=== PATIENT | male | born 1985 | race Hispanic/Latino ===

== ENCOUNTER 2018-09-02 08:35 | Observation (INO) | payer OTHER ==
[2018-09-02 08:45] VITALS: BMI 25.0
[2018-09-02] MEDS ORDERED: Sodium Chloride 0.9% 1,000 ML IV STA ×2 (09:40→14:08)
--- NOTE | 2018-09-02 09:58 | ED PDOC ---
HPI: Abdomen Time Seen by Provider: 09/02/18 09:03 Chief Complaint (Nursing): Male Genitourinary History Per: Patient Additional Complaint(s): Pt. states yesterday at 1400 pt. developed a gradual onset RLQ abd pain which has progressively worsened. States that pain is associated with nausea but does admit to having nausea daily and is not increased. Denies fever, diarrhea, previous abdominal surgeries, back pain, flank pain, hematuria. PMD: Joaquin (has not been him >2 years) Past Medical History Reviewed: Historical Data, Nursing Documentation, Vital Signs Vital Signs: Last Vital Signs Temp 98.1 F 09/02/18 08:42 Pulse 68 09/02/18 08:42 Resp 16 09/02/18 08:42 BP 114/65 09/02/18 08:42 Pulse Ox 96 09/02/18 08:42 - Surgical History Surgical History: No Surg Hx - Family History Family History: States: No Known Family Hx - Home Medications Home Medications: Ambulatory Orders Medication Instructions Recorded RX: No Known Home Med 09/02/18 - Allergies Allergies/Adverse Reactions: Allergies Allergy/AdvReac Type Severity Reaction Status Date / Time No Known Allergies Allergy Verified 09/02/18 08:51 Review of Systems ROS Statement: Except As Marked, All Systems Reviewed And Found Negative Gastrointestinal: Positive for: Nausea, Abdominal Pain Physical Exam - Physical Exam Appears: Positive for: Well, Non-toxic, No Acute Distress Skin: Positive for: Normal Color, Warm. Negative for: Rash Eye Exam: Positive for: Normal appearance. Negative for: Scleral icterus (b/l) Cardiovascular/Chest: Positive for: Regular Rate, Rhythm Respiratory: Positive for: CNT, Normal Breath Sounds Gastrointestinal/Abdominal: Positive for: Normal Exam, Soft, Tenderness (mild tenderness over McBurney's point) Back: Positive for: Normal Inspection. Negative for: L CVA Tenderness, R CVA Tenderness Neurologic/Psych: Positive for: Alert, Oriented (x3). Negative for: Aphasia, Facial Droop - Laboratory Results Result Diagrams: 09/02/18 10:00 09/02/18 10:00 - ECG O2 Sat by Pulse Oximetry: 96 - Progress ED Course And Treament: Labs, IV NS bolus x 1, zofran 4mg IV, CT abd/pelvis w/ IV contrast ordered. Pt. kept NPO. Offered pain meds but refused. 1410 CT abd/pelvis w/ IV contrast: Mildly enlarged appendix surrounding with mild i nflammatory changes. The possibility of an early acute appendicitis should be considered. Slightly prominent right mid and lower abdomen mesenteric lymph nodes. Otherwise no evidence of acute pathology in the abdomen and pelvis. Pt. informed of findings and plan. Agrees with plan. Offered pain meds but still refused. Call placed to surgical garment inspector. 1416 Case d/w BERNARDO Hendrix, who states pt. should be admitted under general surgery or med button maker and not to Marine. Case d/w Dr. Oleary, surgical garment inspector, who will evaluate pt. in ED. 1500 Pt. evaluated by Anirudh in ED who then spoke with Dr. Arias and requests for pt. to be admitted. States the will evaluate pt. before making decision to take pt. to OR but will need observation regardless. Requests that pt. be admitted to the hospitalist. Agrees with Zosyn IV. Pt. informed of pain and agrees. Has not had to eat or drink since 1800 yesterday. 1517 Case d/w Dr. Drew and arrangements made for admission. Disposition - Clinical Impression Clinical Impression: Appendicitis - Patient ED Disposition Is Patient to be Admitted: Yes - Disposition Disposition Time: 15:00 Condition: STABLE
[2018-09-02 10:24] LABS: SQUAMOUS EPITHIAL < 1 /hpf (0-5); URINE BILIRUBIN NEGATIVE (NEGATIVE); URINE BLOOD NEGATIVE (NEGATIVE); URINE CLARITY CLEAR (Clear); URINE COLOR YELLOW (YELLOW); URINE GLUCOSE (UA) NEG (Normal); URINE LEUKOCYTE ESTERASE NEG Leu/uL (Negative); URINE PROTEIN NEGATIVE (NEGATIVE); URINE UROBILINOGEN 0.2-1.0 mg/dL (0.2-1.0)
[2018-09-02 10:47] LABS: BASO % 0.3 % (0.0-2.0); EOS # 0.1 K/uL (0.0-0.7); EOS % 1.6 % (0.0-4.0); HEMOGLOBIN 14.7 g/dL (12.0-18.0); LYMPH # 1.9 K/uL (1.0-4.3); LYMPH % 24.9 % (20.0-40.0); MEAN CELL VOLUME 93.8 fl (80.0-94.0); MEAN CORPUSCULAR HEMOGLOBIN 31.7 pg (27.0-31.0); MEAN CORPUSCULAR HGB CONC 33.8 g/dL (33.0-37.0); MEAN PLATELET VOLUME 9.6 fl (7.2-11.7); MONO # 0.6 K/uL (0.0-0.8); NEUT % 65.2 % (50.0-75.0); RBC 4.63 Mil/uL (4.40-5.90); RED CELL DISTRIBUTION WIDTH 13.3 % (11.5-14.5); WHITE BLOOD COUNT 7.7 K/uL (4.8-10.8)
[2018-09-02 10:52] LABS: ALB/GLOB RATIO 1.2 (1.0-2.1); ALBUMIN 4.4 g/dL (3.5-5.0); ALT/SGPT 32 U/L (21-72); AST/SGOT 23 U/L (17-59); BLOOD UREA NITROGEN 17 mg/dl (9-20); GFR NON-AFRICAN AMERICAN > 60; LIPASE 68 U/L (23-300)
[2018-09-02] MEDS ORDERED: Iohexol 300 100 ML IJ ONE (13:03)
[2018-09-02] MEDS ORDERED: Sodium Chloride 0.9% 100 ML ONE (13:04)
--- NOTE | 2018-09-02 13:55 | CT ---
Date of service: 09/02/2018 PROCEDURE: CT Abdomen and Pelvis with contrast HISTORY: RLQ abd pain COMPARISON: None. TECHNIQUE: Contrast dose: 98 cc of Omnipaque was injected intravenously. Axial and reformatted coronal and sagittal CT images of the abdomen and pelvis were obtained after IV contrast administration. Radiation dose: Total exam DLP = 371.05 mGy-cm. This CT exam was performed using one or more of the following dose reduction techniques: Automated exposure control, adjustment of the mA and/or kV according to patient size, and/or use of iterative reconstruction technique. FINDINGS: LOWER THORAX: Unremarkable. LIVER: Unremarkable. No gross lesion or ductal dilatation. GALLBLADDER AND BILE DUCTS: Unremarkable. PANCREAS: Unremarkable. No gross lesion or ductal dilatation. SPLEEN: Unremarkable. ADRENALS: Unremarkable. No mass. KIDNEYS AND URETERS: Unremarkable. No hydronephrosis. No solid mass. VASCULATURE: Unremarkable. No aortic aneurysm. BOWEL: Unremarkable. No obstruction. No gross mural thickening. APPENDIX: The appendix is enlarged measures up to 10 millimeter in the transverse diameter. Mild inflammatory changes noted at the J sent to the appendix. The possibility of an early appendicitis is not totally excluded. PERITONEUM: Unremarkable. No free fluid. No free air. LYMPH NODES: Slightly prominent mesenteric lymph nodes at the right lower abdomen. No enlarged lymph nodes. BLADDER: Unremarkable. REPRODUCTIVE: The prostate and seminal vesicles are enlarged. BONES: No acute fracture. OTHER FINDINGS: None. IMPRESSION: Mildly enlarged appendix surrounding with mild inflammatory changes. The possibility of an early acute appendicitis should be considered. Slightly prominent right mid and lower abdomen mesenteric lymph nodes. Otherwise no evidence of acute pathology in the abdomen and pelvis.
[2018-09-02] MEDS ORDERED: Piperacillin/Tazobact 3.375 GM in Sodium Chloride 0.9% 100 ML IVPB STA (14:29)
[2018-09-02] MEDS ORDERED: Piperacillin/Tazobact 3.375 gm Inj IVPB ONE (15:03)
--- NOTE | 2018-09-02 15:43 | CP.PCM.CON ---
<Shannon Oleary - Last Filed: 09/02/18 15:36> History of Present Illness - History of Present Illness History of Present Illness: Surgery Consult: Dr. Arias Pt is a 33M with no significant PMHx who presents to [facility] with abdominal pain x 1 day. Pt states he started having pain in the suprapubic/RLQ region yesterday afternoon and thought the pain would go away, however this morning when the pain persisted he came to the ER. Pt states he has never had a similar episode in the past and pain is worse when he moves around. He denies any associated nausea/vomiting, fevers/chills. In the ER, pt had a CT abdomen/pelvis which shows dilated appendix with some inflammatory changes, can't r/o early appendicitis. Prominent mesenteric lymph nodes in RLQ. Surgery called to evaluate. Currently, pt is resting comfortably in ER bed. States his pain is not bad when he is lying still. Admits to being v rachel hungry. Denies nausea/vomiting, fevers/chills, chest pain or SOB. Pt admits to traveling in the last few hours to [place] and states he was treated for "swollen lymph nodes" in his groin twice while in [facility]. PMHx: denies PSHx: knee surgery SocialHx: 5-6 cigs/day x 6 years, social EtOH, denies drugs NKDA Review of Systems - Review of Systems All systems: reviewed and no additional remarkable complaints except (as per HPI) Past Patient History - Infectious Disease Hx of Infectious Diseases: None - Past Social History Smoking Status: Light Smoker < 10 Cigarettes Daily Alcohol: Social Drugs: Denies - PSYCHIATRIC Hx Substance Use: No - SURGICAL HISTORY Hx Orthopedic Surgery: Yes (L Knee sx) - ANESTHESIA Hx Anesthesia: Yes Meds Allergies/Adverse Reactions: Allergies Allergy/AdvReac Type Severity Reaction Status Date / Time No Known Allergies Allergy Verified 09/02/18 08:51 Physical Exam - Constitutional Appears: Well, No Acute Distress - Head Exam Head Exam: ATRAUMATIC, NORMOCEPHALIC - Eye Exam Eye Exam: Normal appearance - ENT Exam ENT Exam: Mucous Membranes Moist - Respiratory Exam Respiratory Exam: NORMAL BREATHING PATTERN - Cardiovascular Exam Cardiovascular Exam: RRR - GI/Abdominal Exam GI & Abdominal Exam: Rebound (LLQ), Soft, Tenderness (to deep palpation in the RLQ/suprapubic region). absent: Distended, Guarding - Neurological Exam Neurological exam: Alert, Oriented x3 - Skin Skin Exam: Dry, Warm Results - Vital Signs Recent Vital Signs: Last Vital Signs Temp 98.1 F 09/02/18 08:42 Pulse 68 09/02/18 08:42 Resp 16 09/02/18 08:42 BP 114/65 09/02/18 08:42 Pulse Ox 96 09/02/18 15:20 - Labs Result Diagrams: 09/02/18 10:00 09/02/18 10:00 Labs: Laboratory Results - last 24 hr 09/02/18 09/02/18 09/02/18 10:00 10:00 10:00 WBC 7.7 RBC 4.63 Hgb 14.7 Hct 43.4 MCV 93.8 MCH 31.7 H MCHC 33.8 RDW 13.3 Plt Count 161 MPV 9.6 Neut % (Auto) 65.2 Lymph % (Auto) 24.9 [place] % (Auto) 8.0 Eos % (Auto) 1.6 Baso % (Auto) 0.3 Neut # (Auto) 5.0 Lymph # (Auto) 1.9 [place] # (Auto) 0.6 Eos # (Auto) 0.1 Baso # (Auto) 0.0 Sodium 142 Potassium 3.9 Chloride 105 Carbon Dioxide 28 Anion Gap 13 BUN 17 Creatinine 1.1 Est GFR ( Amer) > 60 Est GFR (Non-Af Amer) > 60 Random Glucose 90 Calcium 9.0 Total Bilirubin 1.3 AST 23 ALT 32 Alkaline Phosphatase 63 Total Protein 8.0 Albumin 4.4 Globulin 3.6 Albumin/Globulin Ratio 1.2 Lipase 68 Urine Color Yellow Urine Clarity Clear Urine pH 5.0 Ur Specific [place] 1.027 Urine Protein Negative Urine Glucose (UA) Neg Urine Ketones Negative Urine Blood Negative Urine Nitrate Negative Urine Bilirubin Negative Urine Urobilinogen 0.2-1.0 Ur Leukocyte Esterase Neg Urine RBC (Auto) 2 Urine Microscopic WBC 1 Ur Squamous Epith Cells < 1 - Imaging and Cardiology CT scan - abdomen Status: Image reviewed by me, Report reviewed by me Assessment & Plan - Assessment and Plan (Free Text) Assessment: 33M with abdominal pain, r/o appendicitis Plan: - keep NPO with IVF - will discuss operative vs non-operative plan with Dr. Juana Oleary <Scott Arias - Last Filed: 09/02/18 17:18> History of Present Illness - History of Present Illness History of Present Illness: Patient was seen and examined at the bedside. Agree with resident's note above. Meds - Medications Medications: Current Medications Acetaminophen (Tylenol 325mg Tab) 650 mg PO Q6 PRN PRN Reason: Fever >100.4 F Dextrose/Sodium Chloride (Dextrose 5%/0.45% Ns 1000 Ml) 1,000 mls @ 150 mls/hr IV .Q6H40M ANILA Last Admin: 09/02/18 16:54 Dose: 150 mls/hr Ondansetron HCl (Zofran Inj) 4 mg IVP Q6 PRN PRN Reason: Nausea/Vomiting Results - Vital Signs Recent Vital Signs: Last Vital Signs Temp 97.7 F 09/02/18 17:07 Pulse 60 09/02/18 17:07 Resp 16 09/02/18 17:07 BP 99/79 L 09/02/18 17:07 Pulse Ox 99 09/02/18 17:07 - Labs Result Diagrams: 09/02/18 10:00 09/02/18 10:00 Labs: Laboratory Results - last 24 hr 09/02/18 09/02/18 09/02/18 10:00 10:00 10:00 WBC 7.7 RBC 4.63 Hgb 14.7 Hct 43.4 MCV 93.8 MCH 31.7 H MCHC 33.8 RDW 13.3 Plt Count 161 MPV 9.6 Neut % (Auto) 65.2 Lymph % (Auto) 24.9 [place] % (Auto) 8.0 Eos % (Auto) 1.6 Baso % (Auto) 0.3 Neut # (Auto) 5.0 Lymph # (Auto) 1.9 [place] # (Auto) 0.6 Eos # (Auto) 0.1 Baso # (Auto) 0.0 PT INR APTT Sodium 142 Potassium 3.9 Chloride 105 Carbon Dioxide 28 Anion Gap 13 BUN 17 Creatinine 1.1 Est GFR ( Amer) > 60 Est GFR (Non-Af Amer) > 60 Random Glucose 90 Calcium 9.0 Total Bilirubin 1.3 AST 23 ALT 32 Alkaline Phosphatase 63 Total Protein 8.0 Albumin 4.4 Globulin 3.6 Albumin/Globulin Ratio 1.2 Lipase 68 Urine Color Yellow Urine Clarity Clear Urine pH 5.0 Ur Specific [place] 1.027 Urine Protein Negative Urine Glucose (UA) Neg Urine Ketones Negative Urine Blood Negative Urine Nitrate Negative Urine Bilirubin Negative Urine Urobilinogen 0.2-1.0 Ur Leukocyte Esterase Neg Urine RBC (Auto) 2 Urine Microscopic WBC 1 Ur Squamous Epith Cells < 1 09/02/18 16:05 WBC RBC Hgb Hct MCV MCH MCHC RDW Plt Count MPV Neut % (Auto) Lymph % (Auto) [place] % (Auto) Eos % (Auto) Baso % (Auto) Neut # (Auto) Lymph # (Auto) [place] # (Auto) Eos # (Auto) Baso # (Auto) PT 12.5 INR 1.1 APTT 35.1 Sodium Potassium Chloride Carbon Dioxide Anion Gap BUN Creatinine Est GFR ( Amer) Est GFR (Non-Af Amer) Random Glucose Calcium Total Bilirubin AST ALT Alkaline Phosphatase Total Protein Albumin Globulin Albumin/Globulin Ratio Lipase Urine Color Urine Clarity Urine pH Ur Specific [place] Urine Protein Urine Glucose (UA) Urine Ketones Urine Blood Urine Nitrate Urine Bilirubin Urine Urobilinogen Ur Leukocyte Esterase Urine RBC (Auto) Urine Microscopic WBC Ur Squamous Epith Cells Assessment & Plan - Assessment and Plan (Free Text) Plan: - Keep NPO - IV fluids - Hold any antibiotics - Hold pain medications - Will monitor closely - repeat labs in am
[2018-09-02 16:24] LABS: INR 1.1; PROTHROMBIN TIME 12.5 Seconds (9.8-13.1)
[2018-09-02 16:26] LABS: PARTIAL THROMBOPLASTIN TIME 35.1 Seconds (25.6-37.1)
--- NOTE | 2018-09-02 16:41 | CP.PCM.HP ---
<Jean Zaragoza - Last Filed: 09/02/18 17:22> History of Present Illness - History of Present Illness History of Present Illness: This is 33 y/o male with PMH of gastric ulcers admitted to [facility] for evaluation and treatment of possible appendicitis. Patient presented to the ER c/o 1 day history of b/l lower abdominal pain. Pain is 6/10, constant, sharp in nature, non-radiating, moving makes this pain worse, associated with only nausea. patient denies any vomiting, dizziness, fever, chills, diarrhea, constipation, SOB, chest pain, urinary symptoms or weakness. PMD: Dr. Spencer PMH: Gastric ulcers PSH: Left knee arthroscopy Allg: NKDA Medications: Denies FH: Denies any FH of cancers SH: half pack cig/day, social alcohol and denies any illicit drug use ROS: As above ER Course: VS: 98.1, 68, 16RR, 114/65, Spo2 96 CBC: Wnl, no elevated WBCs CMP: WNL Coag: reviewed UA: WNL CT abdo: Mildly enlarged appendix surrounding with mild inflammatory changes. The possibility of an early acute appendicitis should be considered. Slightly prominent right mid and lower abdomen mesenteric lymph nodes. S/p IVF, 2L S/p Zofran 4mg S/p Zosyn Present on Admission - Present on Admission Any Indicators Present on Admission: No History of DVT/PE: No History of Uncontrolled Diabetes: No Urinary Catheter: No Decubitus Ulcer Present: No Past Patient History - Infectious Disease Hx of Infectious Diseases: None - Past Social History Smoking Status: Light Smoker < 10 Cigarettes Daily Alcohol: Social Drugs: Denies - PSYCHIATRIC Hx Substance Use: No - SURGICAL HISTORY Hx Orthopedic Surgery: Yes (L Knee sx) - ANESTHESIA Hx Anesthesia: Yes Meds Allergies/Adverse Reactions: Allergies Allergy/AdvReac Type Severity Reaction Status Date / Time No Known Allergies Allergy Verified 09/02/18 08:51 Physical Exam - Constitutional Appears: No Acute Distress - Head Exam Head Exam: NORMAL INSPECTION - Eye Exam Eye Exam: EOMI, Normal appearance, PERRL Pupil Exam: NORMAL ACCOMODATION - ENT Exam ENT Exam: Mucous Membranes Moist - Neck Exam Neck exam: Positive for: Normal Inspection - Respiratory Exam Respiratory Exam: Clear to Auscultation Bilateral, NORMAL BREATHING PATTERN. absent: Accessory Muscle Use, Chest Wall Tenderness, Prolonged Expiratory Phase - Cardiovascular Exam Cardiovascular Exam: REGULAR RHYTHM, +S1, +S2 - GI/Abdominal Exam GI & Abdominal Exam: Normal Bowel Sounds, Soft. absent: Distended, Guarding, Organomegaly, Tenderness - Extremities Exam Extremities exam: Positive for: normal capillary refill, normal inspection - Back Exam Back exam: NORMAL INSPECTION. absent: CVA tenderness (L), CVA tenderness (R) - Neurological Exam Neurological exam: Alert, CN II-XII Intact, Normal Gait, Oriented x3 - Psychiatric Exam Psychiatric exam: Normal Affect, Normal Mood - Skin Skin Exam: Normal Color Results - Vital Signs Recent Vital Signs: Last Vital Signs Temp 98.8 F 09/02/18 16:09 Pulse 62 09/02/18 16:09 Resp 18 09/02/18 16:09 BP 119/62 09/02/18 16:09 Pulse Ox 100 09/02/18 16:09 - Labs Result Diagrams: 09/02/18 10:00 09/02/18 10:00 Labs: Laboratory Results - last 24 hr 09/02/18 09/02/18 09/02/18 10:00 10:00 10:00 WBC 7.7 RBC 4.63 Hgb 14.7 Hct 43.4 MCV 93.8 MCH 31.7 H MCHC 33.8 RDW 13.3 Plt Count 161 MPV 9.6 Neut % (Auto) 65.2 Lymph % (Auto) 24.9 [place] % (Auto) 8.0 Eos % (Auto) 1.6 Baso % (Auto) 0.3 Neut # (Auto) 5.0 Lymph # (Auto) 1.9 [place] # (Auto) 0.6 Eos # (Auto) 0.1 Baso # (Auto) 0.0 PT INR APTT Sodium 142 Potassium 3.9 Chloride 105 Carbon Dioxide 28 Anion Gap 13 BUN 17 Creatinine 1.1 Est GFR ( Amer) > 60 Est GFR (Non-Af Amer) > 60 Random Glucose 90 Calcium 9.0 Total Bilirubin 1.3 AST 23 ALT 32 Alkaline Phosphatase 63 Total Protein 8.0 Albumin 4.4 Globulin 3.6 Albumin/Globulin Ratio 1.2 Lipase 68 Urine Color Yellow Urine Clarity Clear Urine pH 5.0 Ur Specific [place] 1.027 Urine Protein Negative Urine Glucose (UA) Neg Urine Ketones Negative Urine Blood Negative Urine Nitrate Negative Urine Bilirubin Negative Urine Urobilinogen 0.2-1.0 Ur Leukocyte Esterase Neg Urine RBC (Auto) 2 Urine Microscopic WBC 1 Ur Squamous Epith Cells < 1 09/02/18 16:05 WBC RBC Hgb Hct MCV MCH MCHC RDW Plt Count MPV Neut % (Auto) Lymph % (Auto) [place] % (Auto) Eos % (Auto) Baso % (Auto) Neut # (Auto) Lymph # (Auto) [place] # (Auto) Eos # (Auto) Baso # (Auto) PT 12.5 INR 1.1 APTT 35.1 Sodium Potassium Chloride Carbon Dioxide Anion Gap BUN Creatinine Est GFR ( Amer) Est GFR (Non-Af Amer) Random Glucose Calcium Total Bilirubin AST ALT Alkaline Phosphatase Total Protein Albumin Globulin Albumin/Globulin Ratio Lipase Urine Color Urine Clarity Urine pH Ur Specific [place] Urine Protein Urine Glucose (UA) Urine Ketones Urine Blood Urine Nitrate Urine Bilirubin Urine Urobilinogen Ur Leukocyte Esterase Urine RBC (Auto) Urine Microscopic WBC Ur Squamous Epith Cells Assessment & Plan - Assessment and Plan (Free Text) Assessment: 33 y/o male with PMH of gastric ulcers admitted to [facility] for evaluation and treatment of Possible appendicitis. Lowe Abdominal pain, Possibly due to Appendicitis - Afebrile - No WBCs - S/p IVF, and Zosyn - Consult, Surgery, Dr. Arias, recommendations appreciated - NPO, IVF, No Abx, will follow up recommendations for surgical vs medical intervention - Type and screen, Coag - C/w IVF 150cc/hr - F/u BCx/Ucx and GC/Cl Gastric Ulcer - Chronic, Controlled - Patient reports hx of EGD and Gastric ulcers in past, patient was tested for H.Pylori which was negative in past - Currently not on any medications DVT PPX - SCD for now <Gabo Drew D - Last Filed: 09/03/18 11:21> Results - Vital Signs Recent Vital Signs: Last Vital Signs Temp 98.1 F 09/03/18 08:08 Pulse 54 L 09/03/18 08:08 Resp 19 09/03/18 08:08 BP 103/67 09/03/18 08:08 Pulse Ox 99 09/03/18 08:08 - Labs Result Diagrams: 09/03/18 05:45 09/03/18 05:45 Labs: Laboratory Results - last 24 hr 09/02/18 09/02/18 09/03/18 16:05 16:05 05:45 WBC 4.9 RBC 4.29 L Hgb 13.7 Hct 40.5 MCV 94.4 H MCH 31.9 H MCHC 33.7 RDW 13.5 Plt Count 153 MPV 9.6 Neut % (Auto) 35.8 L Lymph % (Auto) 51.5 H [place] % (Auto) 8.8 Eos % (Auto) 3.3 Baso % (Auto) 0.6 Neut # (Auto) 1.8 Lymph # (Auto) 2.5 [place] # (Auto) 0.4 Eos # (Auto) 0.2 Baso # (Auto) 0.0 PT 12.5 INR 1.1 APTT 35.1 Sodium Potassium Chloride Carbon Dioxide Anion Gap BUN Creatinine Est GFR ( Amer) Est GFR (Non-Af Amer) Random Glucose Calcium Blood Type O POSITIVE Antibody Screen Negative BBK History Checked No verified bt 09/03/18 05:45 WBC RBC Hgb Hct MCV MCH MCHC RDW Plt Count MPV Neut % (Auto) Lymph % (Auto) [place] % (Auto) Eos % (Auto) Baso % (Auto) Neut # (Auto) Lymph # (Auto) [place] # (Auto) Eos # (Auto) Baso # (Auto) PT INR APTT Sodium 140 Potassium 4.1 Chloride 106 Carbon Dioxide 30 Anion Gap 8 L BUN 8 L Creatinine 1.1 Est GFR ( Amer) > 60 Est GFR (Non-Af Amer) > 60 Random Glucose 112 H Calcium 8.7 Blood Type Antibody Screen BBK History Checked Attending/Attestation - Attestation I have personally seen and examined this patient.: Yes I have fully participated in the care of the patient.: Yes I have reviewed all pertinent clinical information: Yes Notes (Text): 09/03/18 11:20 Patient was seen and examined with resident. Case discussed and agreed with assessment and plan of management.
[2018-09-02] MEDS: Dextrose 5%/0.45% NS 1,000 ML IV SCH ×2 (16:54→23:25)
[2018-09-03 07:01] LABS: BASO % 0.6 % (0.0-2.0); EOS # 0.2 K/uL (0.0-0.7); EOS % 3.3 % (0.0-4.0); HEMOGLOBIN 13.7 g/dL (12.0-18.0); LYMPH # 2.5 K/uL (1.0-4.3); LYMPH % 51.5 % (20.0-40.0); MEAN CELL VOLUME 94.4 fl (80.0-94.0); MEAN CORPUSCULAR HEMOGLOBIN 31.9 pg (27.0-31.0); MEAN CORPUSCULAR HGB CONC 33.7 g/dL (33.0-37.0); MEAN PLATELET VOLUME 9.6 fl (7.2-11.7); MONO # 0.4 K/uL (0.0-0.8); MONO % 8.8 % (0.0-10.0); NEUT # 1.8 K/uL (1.8-7.0); NEUT % 35.8 % (50.0-75.0); NRBC % 0.1 % (0.0-0.0); RBC 4.29 Mil/uL (4.40-5.90); RED CELL DISTRIBUTION WIDTH 13.5 % (11.5-14.5); WHITE BLOOD COUNT 4.9 K/uL (4.8-10.8)
[2018-09-03 07:22] LABS: BLOOD UREA NITROGEN 8 mg/dl (9-20); CALCIUM 8.7 mg/dL (8.4-10.2); GFR NON-AFRICAN AMERICAN > 60
--- NOTE | 2018-09-03 07:24 | CP.PCM.PN ---
Subjective - Date & Time of Evaluation Date of Evaluation: 09/03/18 Time of Evaluation: 07:22 - Subjective Subjective: Surgery: Dr. Arias Pt seen and examined. No acute overnight events. Pt states he feels better this morning and his abdominal pain has resolved for the most part. He still feels a little soar in the suprapubic region but denies complaints otherwise. Denies nausea/vomiting, fevers/chills. Objective - Vital Signs/Intake and Output Vital Signs (last 24 hours): Temp Pulse Resp BP Pulse Ox 97.8 F 60 20 102/66 98 09/03/18 00:00 09/03/18 00:00 09/03/18 00:00 09/03/18 00:00 09/03/18 00:00 - Medications Medications: Current Medications Dextrose/Sodium Chloride (Dextrose 5%/0.45% Ns 1000 Ml) 1,000 mls @ 150 mls/hr IV .Q6H40M ANILA Last Admin: 09/02/18 23:25 Dose: Not Given Ondansetron HCl (Zofran Inj) 4 mg IVP Q6 PRN PRN Reason: Nausea/Vomiting - Labs Labs: 09/03/18 05:45 09/03/18 05:45 PT 12.5 Seconds (9.8-13.1) 09/02/18 16:05 INR 1.1 09/02/18 16:05 APTT 35.1 Seconds (25.6-37.1) 09/02/18 16:05 - Constitutional Appears: Well, No Acute Distress - Head Exam Head Exam: ATRAUMATIC, NORMOCEPHALIC - Eye Exam Eye Exam: Normal appearance - ENT Exam ENT Exam: Mucous Membranes Moist - Respiratory Exam Respiratory Exam: NORMAL BREATHING PATTERN - Cardiovascular Exam Cardiovascular Exam: RRR - GI/Abdominal Exam GI & Abdominal Exam: Soft, Tenderness (to deep palpation in the suprapubic region ). absent: Distended, Guarding, Rebound - Neurological Exam Neurological Exam: Alert, Awake, Oriented x3 - Skin Skin Exam: Dry, Warm Assessment and Plan - Assessment and Plan (Free Text) Assessment: 33M with abdominal pain r/o appendicitis Plan: - pt with improvement of symptoms this AM and continues to have no white count or fevers - unlikley that pt has appendicitis; will start CLD and advance as tolerated - d/w Dr. Juana Oleary
[2018-09-03 08:09] VITALS: BP 103/67; PULSE 54; RESP 19; TEMP 98.1; O2SAT 99
--- NOTE | 2018-09-03 11:19 | CP.PCM.DIS ---
<Jess Valdez - Last Filed: 09/03/18 13:36> Provider - Provider Date of Admission: 09/02/18 16:32 Attending physician: Gabo rDew MD Primary care physician: Non [facility] Provider Time Spent in preparation of Discharge (in minutes): 30 Diagnosis - Discharge Diagnosis (1) Abdominal pain Status: Acute (2) Abdominal pain Status: Acute Hospital Course - Lab Results Lab Results: Micro Results 09/02/18 10:00 Urine,Clean Catch Urine Culture - Final No Growth (<1,000 CFU/ML) 09/02/18 10:00 Blood Blood Culture - Preliminary NO GROWTH AFTER 24 HOURS Most Recent Lab Values WBC 4.9 K/uL (4.8-10.8) 09/03/18 05:45 RBC 4.29 Mil/uL (4.40-5.90) L 09/03/18 05:45 Hgb 13.7 g/dL (12.0-18.0) 09/03/18 05:45 Hct 40.5 % (35.0-51.0) 09/03/18 05:45 MCV 94.4 fl (80.0-94.0) H 09/03/18 05:45 MCH 31.9 pg (27.0-31.0) H 09/03/18 05:45 MCHC 33.7 g/dL (33.0-37.0) 09/03/18 05:45 RDW 13.5 % (11.5-14.5) 09/03/18 05:45 Plt Count 153 K/uL (130-400) 09/03/18 05:45 MPV 9.6 fl (7.2-11.7) 09/03/18 05:45 Neut % (Auto) 35.8 % (50.0-75.0) L 09/03/18 05:45 Lymph % (Auto) 51.5 % (20.0-40.0) H 09/03/18 05:45 [place] % (Auto) 8.8 % (0.0-10.0) 09/03/18 05:45 Eos % (Auto) 3.3 % (0.0-4.0) 09/03/18 05:45 Baso % (Auto) 0.6 % (0.0-2.0) 09/03/18 05:45 Neut # (Auto) 1.8 K/uL (1.8-7.0) 09/03/18 05:45 Lymph # (Auto) 2.5 K/uL (1.0-4.3) 09/03/18 05:45 [place] # (Auto) 0.4 K/uL (0.0-0.8) 09/03/18 05:45 Eos # (Auto) 0.2 K/uL (0.0-0.7) 09/03/18 05:45 Baso # (Auto) 0.0 K/uL (0.0-0.2) 09/03/18 05:45 PT 12.5 Seconds (9.8-13.1) 09/02/18 16:05 INR 1.1 09/02/18 16:05 APTT 35.1 Seconds (25.6-37.1) 09/02/18 16:05 Sodium 140 mmol/l (132-148) 09/03/18 05:45 Potassium 4.1 MMOL/L (3.6-5.0) 09/03/18 05:45 Chloride 106 mmol/L (98-107) 09/03/18 05:45 Carbon Dioxide 30 mmol/L (22-30) 09/03/18 05:45 Anion Gap 8 (10-20) L 09/03/18 05:45 BUN 8 mg/dl (9-20) L 09/03/18 05:45 Creatinine 1.1 mg/dl (0.8-1.5) 09/03/18 05:45 Est GFR ( Amer) > 60 09/03/18 05:45 Est GFR (Non-Af Amer) > 60 09/03/18 05:45 Random Glucose 112 mg/dL (75-110) H 09/03/18 05:45 Calcium 8.7 mg/dL (8.4-10.2) 09/03/18 05:45 Total Bilirubin 1.3 mg/dl (0.2-1.3) 09/02/18 10:00 AST 23 U/L (17-59) 09/02/18 10:00 ALT 32 U/L (21-72) 09/02/18 10:00 Alkaline Phosphatase 63 U/L (38-126) 09/02/18 10:00 Total Protein 8.0 G/DL (6.3-8.2) 09/02/18 10:00 Albumin 4.4 g/dL (3.5-5.0) 09/02/18 10:00 Globulin 3.6 gm/dL (2.2-3.9) 09/02/18 10:00 Albumin/Globulin Ratio 1.2 (1.0-2.1) 09/02/18 10:00 Lipase 68 U/L (23-300) 09/02/18 10:00 Urine Color Yellow (YELLOW) 09/02/18 10:00 Urine Clarity Clear (Clear) 09/02/18 10:00 Urine pH 5.0 (5.0-8.0) 09/02/18 10:00 Ur Specific [place] 1.027 (1.003-1.030) 09/02/18 10:00 Urine Protein Negative mg/dL (NEGATIVE) 09/02/18 10:00 Urine Glucose (UA) Neg mg/dL (Normal) 09/02/18 10:00 Urine Ketones Negative mg/dL (NEGATIVE) 09/02/18 10:00 Urine Blood Negative (NEGATIVE) 09/02/18 10:00 Urine Nitrate Negative (NEGATIVE) 09/02/18 10:00 Urine Bilirubin Negative (NEGATIVE) 09/02/18 10:00 Urine Urobilinogen 0.2-1.0 mg/dL (0.2-1.0) 09/02/18 10:00 Ur Leukocyte Esterase Neg [place]/uL (Negative) 09/02/18 10:00 Urine RBC (Auto) 2 /hpf (0-3) 09/02/18 10:00 Urine Microscopic WBC 1 /hpf (0-5) 09/02/18 10:00 Ur Squamous Epith Cells < 1 /hpf (0-5) 09/02/18 10:00 Blood Type O POSITIVE 09/02/18 16:05 Antibody Screen Negative 09/02/18 16:05 BBK History Checked No verified bt 09/02/18 16:05 - Hospital Course Hospital Course: 33 y/o male with PMH of gastric ulcers admitted to [facility] for evaluation and treatment of Possible appendicitis. Abdominal pain most likely secondary to IBS vs Gastirits - Afebrile - No WBCs - Pain has resolvedand patinet has been able to tolerate diet without any difficulties. - Surgery had been consulted - CT: Mildly enlarged appendix surrounding with mild inflammatory changes, - C/w IVF 150cc/hr Gastric Ulcer - Chronic, Controlled - Patient reports hx of EGD and Gastric ulcers in past, patient was tested for H.Pylori which was negative in past and negative x 2 - Started on Pepcid 20 mg BID, was not on medication at home Discharge Exam - Head Exam Head Exam: ATRAUMATIC, NORMOCEPHALIC - Eye Exam Eye Exam: Normal appearance - ENT Exam ENT Exam: Mucous Membranes Moist - Respiratory Exam Respiratory Exam: NORMAL BREATHING PATTERN, UNREMARKABLE. absent: Rhonchi, Wheezes - Cardiovascular Exam Cardiovascular Exam: REGULAR RHYTHM, +S1, +S2 - GI/Abdominal Exam GI & Abdominal Exam: Normal Bowel Sounds, Soft, Tenderness - Neurological Exam Neurological exam: Alert, CN II-XII Intact, Oriented x3 - Skin Skin Exam: Normal Color, Warm Discharge Plan - Discharge Medications Prescriptions: RX: Famotidine [Pepcid] 20 mg PO BID #28 tab - Follow Up Plan Condition: STABLE Disposition: HOME/ ROUTINE Instructions: Appendicitis in Adults, Appendicitis, Adult (DC) Referrals: Froylan Huntley MD [Staff Provider] - <Gabo Drew - Last Filed: 09/03/18 16:11> Provider - Provider Date of Admission: 09/02/18 16:32 Attending physician: Gabo Drew MD Primary care physician: Non [facility] Provider Hospital Course - Lab Results Lab Results: Micro Results 09/02/18 10:00 Urine,Clean Catch Urine Culture - Final No Growth (<1,000 CFU/ML) 09/02/18 10:00 Blood Blood Culture - Preliminary NO GROWTH AFTER 24 HOURS Most Recent Lab Values WBC 4.9 K/uL (4.8-10.8) 09/03/18 05:45 RBC 4.29 Mil/uL (4.40-5.90) L 09/03/18 05:45 Hgb 13.7 g/dL (12.0-18.0) 09/03/18 05:45 Hct 40.5 % (35.0-51.0) 09/03/18 05:45 MCV 94.4 fl (80.0-94.0) H 09/03/18 05:45 MCH 31.9 pg (27.0-31.0) H 09/03/18 05:45 MCHC 33.7 g/dL (33.0-37.0) 09/03/18 05:45 RDW 13.5 % (11.5-14.5) 09/03/18 05:45 Plt Count 153 K/uL (130-400) 09/03/18 05:45 MPV 9.6 fl (7.2-11.7) 09/03/18 05:45 Neut % (Auto) 35.8 % (50.0-75.0) L 09/03/18 05:45 Lymph % (Auto) 51.5 % (20.0-40.0) H 09/03/18 05:45 [place] % (Auto) 8.8 % (0.0-10.0) 09/03/18 05:45 Eos % (Auto) 3.3 % (0.0-4.0) 09/03/18 05:45 Baso % (Auto) 0.6 % (0.0-2.0) 09/03/18 05:45 Neut # (Auto) 1.8 K/uL (1.8-7.0) 09/03/18 05:45 Lymph # (Auto) 2.5 K/uL (1.0-4.3) 09/03/18 05:45 [place] # (Auto) 0.4 K/uL (0.0-0.8) 09/03/18 05:45 Eos # (Auto) 0.2 K/uL (0.0-0.7) 09/03/18 05:45 Baso # (Auto) 0.0 K/uL (0.0-0.2) 09/03/18 05:45 PT 12.5 Seconds (9.8-13.1) 09/02/18 16:05 INR 1.1 09/02/18 16:05 APTT 35.1 Seconds (25.6-37.1) 09/02/18 16:05 Sodium 140 mmol/l (132-148) 09/03/18 05:45 Potassium 4.1 MMOL/L (3.6-5.0) 09/03/18 05:45 Chloride 106 mmol/L (98-107) 09/03/18 05:45 Carbon Dioxide 30 mmol/L (22-30) 09/03/18 05:45 Anion Gap 8 (10-20) L 09/03/18 05:45 BUN 8 mg/dl (9-20) L 09/03/18 05:45 Creatinine 1.1 mg/dl (0.8-1.5) 09/03/18 05:45 Est GFR ( Amer) > 60 09/03/18 05:45 Est GFR (Non-Af Amer) > 60 09/03/18 05:45 Random Glucose 112 mg/dL (75-110) H 09/03/18 05:45 Calcium 8.7 mg/dL (8.4-10.2) 09/03/18 05:45 Total Bilirubin 1.3 mg/dl (0.2-1.3) 09/02/18 10:00 AST 23 U/L (17-59) 09/02/18 10:00 ALT 32 U/L (21-72) 09/02/18 10:00 Alkaline Phosphatase 63 U/L (38-126) 09/02/18 10:00 Total Protein 8.0 G/DL (6.3-8.2) 09/02/18 10:00 Albumin 4.4 g/dL (3.5-5.0) 09/02/18 10:00 Globulin 3.6 gm/dL (2.2-3.9) 09/02/18 10:00 Albumin/Globulin Ratio 1.2 (1.0-2.1) 09/02/18 10:00 Lipase 68 U/L (23-300) 09/02/18 10:00 Urine Color Yellow (YELLOW) 09/02/18 10:00 Urine Clarity Clear (Clear) 09/02/18 10:00 Urine pH 5.0 (5.0-8.0) 09/02/18 10:00 Ur Specific [place] 1.027 (1.003-1.030) 09/02/18 10:00 Urine Protein Negative mg/dL (NEGATIVE) 09/02/18 10:00 Urine Glucose (UA) Neg mg/dL (Normal) 09/02/18 10:00 Urine Ketones Negative mg/dL (NEGATIVE) 09/02/18 10:00 Urine Blood Negative (NEGATIVE) 09/02/18 10:00 Urine Nitrate Negative (NEGATIVE) 09/02/18 10:00 Urine Bilirubin Negative (NEGATIVE) 09/02/18 10:00 Urine Urobilinogen 0.2-1.0 mg/dL (0.2-1.0) 09/02/18 10:00 Ur Leukocyte Esterase Neg [place]/uL (Negative) 09/02/18 10:00 Urine RBC (Auto) 2 /hpf (0-3) 09/02/18 10:00 Urine Microscopic WBC 1 /hpf (0-5) 09/02/18 10:00 Ur Squamous Epith Cells < 1 /hpf (0-5) 09/02/18 10:00 Blood Type O POSITIVE 09/02/18 16:05 Antibody Screen Negative 09/02/18 16:05 BBK History Checked No verified bt 09/02/18 16:05 Attending/Attestation - Attestation I have personally seen and examined this patient.: Yes I have fully participated in the care of the patient.: Yes I have reviewed all pertinent clinical information, including history, physical exam and plan: Yes Notes (Text): 09/03/18 16:06 Patient was seen and examined. Case was discussed and agreed that patient did not have appendicitis since he was asymptomatic without pain medication and without antibiotics. It was agreed that his symptoms were secondary to his pre existing IBS. Patient was discharged in stable condition.
== END 2018-09-03 13:00 | disposition home or self-care (01) ==
LOC: SUPCPDRO 08:35 → H.ER 08:35 → H.ERHOLD 16:32 → H.MEDSURG1 17:18
DX: K58.9 Irritable bowel syndrome, unspecified (principal); K25.9 Gastric ulcer, unspecified as acute or chronic, without hemorrhage or perforation; Z87.891 Personal history of nicotine dependence
CPT/HCPCS: 36415; 74177; 80048; 80053; 81003; 83690; 85025; 85610; 85730; 86850; 86900; 87040; 87086; 87491; 87591; 96361; 96365; 96375; 99285; G0378; J2405; J2543; J7030; J7042; Q9967